=== PATIENT | male | born 1990 ===

== ENCOUNTER 2016-07-31 18:30 | Emergency (ER) | payer OTHER ==
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
[2016-07-31 19:41] LABS: Basophils % (Auto) 0.3 % (0.0-1.8); Eosinophils % (Auto) 0.2 % (0.0-4.3); Mean Corpuscular HGB Conc 31 % (32-34); Mean Corpuscular Volume 78 fl (84-94); Platelet Count 256 K/mm3 (140-440); Red Blood Count 6.37 M/mm3 (3.65-5.03); Red Cell Distribution Width 13.8 % (13.2-15.2); White Blood Count 18.2 K/mm3 (4.5-11.0)
[2016-07-31 19:49] LABS: Hematocrit 49.6 % (35.5-45.6); Hemoglobin 15.5 gm/dl (11.8-15.2); Mean Corpuscular Hemoglobin 24 pg (28-32)
[2016-07-31 20:03] LABS: Creatine Kinase MB 4.8 ng/mL (0.0-4.0)
[2016-07-31 20:04] LABS: Anion Gap 18 mmol/L; Blood Urea Nitrogen 9 mg/dL (9-20); Calcium 9.5 mg/dL (8.4-10.2); Carbon Dioxide 24 mmol/L (22-30); Chloride 99.3 mmol/L (98-107); Creatine Kinase 373 units/L (55-170); Glucose 85 mg/dL (75-100); Lipase 51 units/L (13-60); Potassium 4.1 mmol/L (3.6-5.0); Sodium 137 mmol/L (137-145)
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
[2016-07-31 23:52] VITALS: BP 137/74
[2016-07-31] MEDS ORDERED: PERCOCET 5/325 PO ONE (23:58)
--- NOTE | 2016-08-01 01:03 | XRay Report ---
FINAL REPORT PROCEDURE: XR SPINE THORACIC 3V TECHNIQUE: Thoracic spine radiographs including AP, lateral, and Swimmer's views. CPT 68595 HISTORY: midline tenderness COMPARISON: No prior studies are available for comparison. FINDINGS: Alignment: Normal . Vertebral body height: Normal . Disk spaces: Normal . Fracture(s): None . Bone mineralization: Normal . IMPRESSION: Normal Examination.
--- NOTE | 2016-08-01 10:45 | XRay Report ---
CHEST TWO VIEWS: 07/31/16 18:30:00 CLINICAL: Chest pain. COMPARISON: None. FINDINGS: Normal heart and pulmonary vasculature. The lungs are normally expanded and clear.The bones and soft tissues are unremarkable. IMPRESSION: Normal chest.
== END 2016-08-01 01:24 | disposition home or self-care (01) ==
LOC: ED 18:30
DX: R07.89 Other chest pain (principal); R51 Headache; M54.6 Pain in thoracic spine; V49.49XA Driver injured in collision with other motor vehicles in traffic accident, initial encounter; Y93.9 Activity, unspecified; Y92.9 Unspecified place or not applicable; Y99.9 Unspecified external cause status
CPT/HCPCS: 36415; 71020; 72072; 80048; 82550; 82553; 83690; 84484; 85025; 93005; 93010; 99284